=== PATIENT | male | born 1985 | race Two or more races ===

== ENCOUNTER → 2016-10-22 | Outpatient (CLI) | payer OTHER ==
--- NOTE | 2016-10-22 12:50 | REP ---
Clinical: Pain . Technique: AP, lateral, bilateral oblique and sunrise views. Findings: The osseous structures and joint spaces are intact and normal for age. There is no evidence for acute fracture or dislocation. No joint effusion is appreciated. Surrounding soft tissues are unremarkable. No subcutaneous emphysema or radiodense foreign body. Impression: Relatively age-appropriate examination. No overt osteoarthritic degenerative changes are appreciated. Signed by Rolf Gomez MD 10/22/2016 12:42 P
== END ==
LOC: M LRY 12:06
PROVIDERS: ATTEND Physician Assistant
DX: M25.561 Pain in right knee (principal)
CPT/HCPCS: 73564; G0463